=== PATIENT | female | born 1970 | race Hispanic/Latino ===

== ENCOUNTER 2018-09-25 13:25 | Emergency (ER) | payer OTHER ==
[2018-09-25] MEDS ORDERED: KETOROLAC TROMETHAMINE 30MG/ML ONE (14:55)
[2018-09-25 15:13] LABS: BASOPHILS % (AUTO) 0.6 % (0.0-5.0); EOSINOPHILS % (AUTO) 0.1 % (0.0-8.0); HEMATOCRIT 46.4 % (36-48); LYMPHOCYTES % (AUTO) 5.1 % (21.0-51.0); MEAN CORPUSCULAR HEMOGLOBIN 29.6 pg (27.0-33.0); MEAN CORPUSCULAR HGB CONC 33.6 g/dL (32.0-36.0); MEAN CORPUSCULAR VOLUME 88.2 fL (79-99); MONOCYTES % (AUTO) 2.4 % (3.0-13.0); NEUTROPHILS % (AUTO) 91.8 % (40.0-77.0); PLATELET COUNT (AUTO) 142 K/uL (130-400); RED BLOOD CELL COUNT(AUTO) 5.27 MIL/uL (4.00-5.50); RED CELL DISTRIBUTION WIDTH 13.3 % (11.0-15.5); WHITE BLOOD COUNT (AUTO) 11.2 K/uL (4.8-10.8)
[2018-09-25 15:16] LABS: APPEARANCE,URINE Clear (CLEAR); BILIRUBIN,URINE Negative (NEGATIVE); COLOR,URINE Yellow (YELLOW); GLUCOSE, URINE (UA) >=1000 mg/dL (NEGATIVE); KETONES,URINE 40 mg/dL (NEGATIVE); LEUKOCYTE ESTERASE ,URINE Negative (NEGATIVE); NITRATE,URINE Negative (NEGATIVE); OCCULT BLOOD,URINE Negative (NEGATIVE); PROTEIN,URINE Negative (NEGATIVE); UROBILINOGEN,URINE 0.2 mg/dL (0.2-1.0)
[2018-09-25 15:21] LABS: AMPHET/METH SCREEN,URINE NEGATIVE (NEGATIVE); BARBITURATE SCREEN, URINE NEGATIVE (NEGATIVE); BENZODIAZEPINES SCREEN,URINE NEGATIVE (NEGATIVE); CANNABINOID SCREEN,URINE NEGATIVE (NEGATIVE); COCAINE SCREEN,URINE NEGATIVE (NEGATIVE); OPIATE SCREEN,URINE NEGATIVE (NEGATIVE); PHENCYCLIDINE SCREEN,URINE NEGATIVE (NEGATIVE)
[2018-09-25 15:28] LABS: CREATININE 0.8 mg/dL (0.5-1.5)
[2018-09-25 15:33] LABS: ALBUMIN 3.4 g/dL (3.5-5.0); BILIRUBIN,TOTAL 0.7 mg/dL (0.2-1.0); TOTAL PROTEIN, SERUM 8.2 g/dL (6.0-8.3)
[2018-09-25 15:40] LABS: RBC,URINE 0-1 /HPF (0-1); WBC,URINE 0-1 /HPF (0-1)
[2018-09-25 15:41] LABS: BACTERIA,URINE Rare /HPF (None Seen)
[2018-09-25 15:42] LABS: SQUAMOUS EPITHELIAL CELL,UR Rare /HPF (0-2)
== END 2018-09-25 16:15 | disposition home or self-care (01) ==
LOC: EDH 13:25
DX: R07.89 Other chest pain (principal); R11.2 Nausea with vomiting, unspecified; R19.7 Diarrhea, unspecified; E78.5 Hyperlipidemia, unspecified; E11.9 Type 2 diabetes mellitus without complications; I10 Essential (primary) hypertension
CPT/HCPCS: 36415; 71045; 80053; 80305; 81001; 85025; 93005; 96374; 99284; J1885

== ENCOUNTER 2020-03-18 09:04 | Observation (INO) | payer OTHER ==
[2020-03-18] VITALS (20 sets, daily range): BP systolic 101–145; BP diastolic 49–68
[2020-03-18 09:33] LABS: BASOPHILS % (AUTO) 0.4 % (0.0-5.0); EOSINOPHILS % (AUTO) 0.9 % (0.0-8.0); HEMATOCRIT 47.3 % (36-48); MEAN CORPUSCULAR HEMOGLOBIN 29.6 pg (27.0-33.0); MEAN CORPUSCULAR HGB CONC 32.8 g/dL (32.0-36.0); MEAN CORPUSCULAR VOLUME 90.3 fL (79-99); MONOCYTES % (AUTO) 4.5 % (3.0-13.0); NEUTROPHILS % (AUTO) 66.9 % (40.0-77.0); PLATELET COUNT (AUTO) 185 K/uL (130-400); RED BLOOD CELL COUNT(AUTO) 5.24 MIL/uL (4.00-5.50); RED CELL DISTRIBUTION WIDTH 13.2 % (11.0-15.5); WHITE BLOOD COUNT (AUTO) 10.5 K/uL (4.8-10.8)
[2020-03-18 09:50] LABS: ALBUMIN 3.2 g/dL (3.5-5.0); BILIRUBIN,DIRECT 0.1 mg/dL (0.0-0.3); BILIRUBIN,TOTAL 0.5 mg/dL (0.2-1.0); CREATININE 0.8 mg/dL (0.5-1.5); POTASSIUM 3.4 mmol/L (3.5-5.1); TOTAL PROTEIN, SERUM 8.6 g/dL (6.0-8.3)
[2020-03-18] MEDS ORDERED: ONDANSETRON HCL 4 MG/2 ML VIAL ONE ×2 (09:56→14:00)
[2020-03-18] MEDS ORDERED: KETOROLAC TROMETHAMINE 30MG/ML ONE (09:56)
[2020-03-18] MEDS ORDERED: CEFTRIAXONE SODIUM 2 GM VIAL ONE (10:56)
[2020-03-18] MEDS ORDERED: SODIUM CHLORIDE 0.9% 100 ML IV ONE (10:57)
[2020-03-18 12:54] LABS: APPEARANCE,URINE Clear (CLEAR); BILIRUBIN,URINE Negative (NEGATIVE); COLOR,URINE Yellow (YELLOW); GLUCOSE, URINE (UA) >=1000 mg/dL (NEGATIVE); KETONES,URINE 40 mg/dL (NEGATIVE); LEUKOCYTE ESTERASE ,URINE Negative (NEGATIVE); NITRATE,URINE Negative (NEGATIVE); OCCULT BLOOD,URINE Trace (NEGATIVE); PROTEIN,URINE Negative (NEGATIVE); UROBILINOGEN,URINE 0.2 mg/dL (0.2-1.0)
[2020-03-18 13:06] LABS: BACTERIA,URINE None Seen /HPF (None Seen); RBC,URINE 0-1 /HPF (0-1); SQUAMOUS EPITHELIAL CELL,UR 0-2 /HPF (0-2); WBC,URINE 0-1 /HPF (0-1); YEAST,URINE BUDDING Few /HPF (None Seen)
[2020-03-18] MEDS ORDERED: SUCCINYLCHOLINE CHLORIDE 20 MG/ML 10 ML VIAL ONE (13:59)
[2020-03-18] MEDS ORDERED: LIDOCAINE PF 2% 5ML ABBOJECT ONE (13:59)
[2020-03-18] MEDS ORDERED: PROPOFOL 10 MG/ML 20ML VIAL IV ONE (14:00)
[2020-03-18] MEDS ORDERED: DEXAMETHASONE SOD PHOSPHATE 10MG/ML 1ML VIAL ONE (14:00)
[2020-03-18] MEDS ORDERED: GLYCOPYRROLATE 1 MG/5 ML SYRINGE ONE (14:00)
[2020-03-18] MEDS ORDERED: ROCURONIUM 10MG/1ML SYR 10 MG/ML ML ONE (14:01)
[2020-03-18] MEDS ORDERED: NEOSTIGMINE 5MG/5ML SYR IV ONE (14:01)
[2020-03-18] MEDS ORDERED: MIDAZOLAM HCL 1 MG/ML 2ML VIAL ONE (14:01)
[2020-03-18] MEDS ORDERED: FENTANYL CITRATE PF 50 MCG/1 ML 2ML VIAL ONE ×2 (14:02→15:52)
[2020-03-18] MEDS ORDERED: BUPIVACAINE/PF 0.5% 30ML VIAL ONE (15:41)
[2020-03-18] MEDS ORDERED: PHARMACY COMMUNICATION MISC SCH (15:45)
[2020-03-18] MEDS ORDERED: ONDANSETRON HCL 4 MG/2 ML VIAL IV PRN (15:45)
[2020-03-18] MEDS: SODIUM CHLORIDE 0.9% 1000ML 1,000 ML IV SCH ×3 (15:45→23:16)
[2020-03-18] MEDS ORDERED: LACTULOSE 20 GM/30 ML UDCUP PO PRN (15:45)
[2020-03-18] MEDS ORDERED: MORPHINE SULFATE 2 MG/ML 1ML SYG IV PRN (15:45)
[2020-03-18] MEDS ORDERED: ACETAMINOPHEN 325 MG TAB PO PRN ×2 (15:45)
[2020-03-18] MEDS ORDERED: LACTATED RINGERS 1000ML 1,000 ML IV ONE (17:56)
[2020-03-18] MEDS: LACTATED RINGERS 1000ML 1,000 ML IV SCH (18:00)
[2020-03-18] MEDS ORDERED: SITA100T12 PO (18:26)
[2020-03-18] MEDS ORDERED: INSU100I3 SQ (18:26)
[2020-03-18] MEDS ORDERED: MULT-1192 PO (18:26)
[2020-03-18] MEDS ORDERED: ERGO500014 PO (18:26)
[2020-03-18] MEDS ORDERED: OMEP20CA12 PO (18:26)
[2020-03-18] MEDS ORDERED: STEGLATRO PO (18:26)
[2020-03-18] MEDS ORDERED: ATOR20TA65 PO (18:26)
[2020-03-18] MEDS: ZOSYN 3.375GM+NS 50ML 50 ML IV SCH (20:29)
[2020-03-18] MEDS: FAMOTIDINE/PF 20 MG/2 ML VIAL IV SCH (20:30)
[2020-03-18] MEDS ORDERED: ACETAMINOPHEN-CODEINE 300/30MG TAB PO PRN (20:45)
[2020-03-18] MEDS ORDERED: METRONIDAZOLE 500 MG TABLET PO SCH (21:00)
[2020-03-19] MEDS: ZOSYN 3.375GM+NS 50ML 50 ML IV SCH ×2 (03:14→14:38)
[2020-03-19] MEDS: LACTATED RINGERS 1000ML 1,000 ML IV SCH ×2 (03:14→14:00)
[2020-03-19] MEDS: SODIUM CHLORIDE 0.9% 1000ML 1,000 ML IV SCH ×2 (03:15→15:45)
[2020-03-19 03:32] VITALS: BP 108/63
[2020-03-19 06:09] LABS: BASOPHILS % (AUTO) 0.1 % (0.0-5.0); EOSINOPHILS % (AUTO) 0.1 % (0.0-8.0); HEMATOCRIT 44.2 % (36-48); LYMPHOCYTES % (AUTO) 11.5 % (21.0-51.0); MEAN CORPUSCULAR HEMOGLOBIN 29.6 pg (27.0-33.0); MEAN CORPUSCULAR HGB CONC 32.6 g/dL (32.0-36.0); MEAN CORPUSCULAR VOLUME 90.8 fL (79-99); NEUTROPHILS % (AUTO) 86.6 % (40.0-77.0); PLATELET COUNT (AUTO) 189 K/uL (130-400); RED BLOOD CELL COUNT(AUTO) 4.87 MIL/uL (4.00-5.50); RED CELL DISTRIBUTION WIDTH 12.8 % (11.0-15.5); WHITE BLOOD COUNT (AUTO) 10.7 K/uL (4.8-10.8)
[2020-03-19 06:26] LABS: ALBUMIN 2.6 g/dL (3.5-5.0); BILIRUBIN,TOTAL 0.4 mg/dL (0.2-1.0); CREATININE 0.8 mg/dL (0.5-1.5); POTASSIUM 4.5 mmol/L (3.5-5.1); TOTAL PROTEIN, SERUM 7.1 g/dL (6.0-8.3)
[2020-03-19 08:06] VITALS: BP_SYST 112; BP_SYST 118; BP_DIAS 42; BP_DIAS 49
[2020-03-19] MEDS: FAMOTIDINE/PF 20 MG/2 ML VIAL IV SCH (08:42)
--- NOTE | 2020-03-19 11:30 | NUR ---
DCP CM spoke to pt discussed dc plans. Pt is independent prior to admission, lives at home with spouse. Denies any equipments/services. Feels safe to go back home, still drives, spouse able to assist with transportation and needs as necessary. DC plan to home once stable. CM to continue to follow up. Addendum: 03/19/20 at 1131 by TOO ANTOINE LVN CM Amended: Links added.
[2020-03-19 11:36] VITALS: BP 114/55
[2020-03-19 16:21] VITALS: BP 129/51
--- NOTE | 2020-03-19 19:52 | NUR ---
DISCHARGE PATIENT DISCHARGED HOME PER ORDERS. IV REMOVED FROM RIGHT AC CATHETER INTACT. ALL INSTRUCTIONS, PRESCRIPTION, AND BELONGINGS TAKEN DOWN WITH PATIENT TO FAMILY CAR. ALL QUESTIONS AND CONCERNS ADDRESSED. PATIENT INSTRUCTED TO MAKE APPOINTMENTS WITH FOLLOW UP MDS.
== END 2020-03-19 20:37 | disposition home or self-care (01) ==
LOC: EDH 09:04 → 3AH 15:36 → INTOOBSV 15:36
PROVIDERS: ADMIT Hospitalist; ATTEND Hospitalist
DX: K35.80 Unspecified acute appendicitis (principal); E11.9 Type 2 diabetes mellitus without complications; I88.0 Nonspecific mesenteric lymphadenitis; K43.9 Ventral hernia without obstruction or gangrene; M47.815 Spondylosis without myelopathy or radiculopathy, thoracolumbar region; E78.5 Hyperlipidemia, unspecified; Z79.4 Long term (current) use of insulin
CPT/HCPCS: 36415 ×2; 44970; 74176; 80048; 80053; 80076; 81001; 82550; 82948 ×5; 83690; 84484; 85025 ×2; 93005; 96365; 96366 ×3; 96375; 96376; 99285; A4344; A4600; A4649 ×3; C1769 ×3; G0378 ×10; J0330; J0696; J1100; J1885; J2001; J2250; J2405 ×2; J2543 ×3; J2704; J2710; J3010 ×2; J3490 ×4; J7030; J7120 ×2